=== PATIENT | female | born 1970 | race Caucasian/White ===

== ENCOUNTER 2019-09-26 06:17 | Day surgery (SDC) | payer OTHER ==
[~2019-09-26] VITALS: Ht 167.6 cm; Wt 93.4 kg
[~2019-09-26 06:17] MED LIST: B-121000 MC2 PO; IODINE STRONG100 ML; LORA.5 PO; Methimazole5 MG PO; POTCHL20ER PO; TRIPLE MAGNESI400 MG PO
--- NOTE | 2019-09-26 07:27 | NUR ---
09/26/19 0727 Concha Tanner 1ST ATTEMPT IN RIGHT HAND INFILTRATED RXS SECOND ATTEMPT IN LEFT HAND AGAINST VALVE RXS THIRD ATTEMPT IN RIGHT WRIST INFILTRATED JST FOURTH ATTEMPT IN LEFT HAND SUCCESSFUL JST
[2019-09-26 09:52] LABS: Hematocrit 39.4 % (33.0-51.0); Hemoglobin 13.1 g/dL (11.5-16.0); Mean Corpuscular HGB 31.1 pg (26.0-34.0); Mean Corpuscular HGB Conc 33.2 g/dL (31.5-36.5); Mean Corpuscular Volume 94 fL (80-100); Mean Platelet Volume 9.6 fL (9.1-12.4); Platelet Count 213 K/mm3 (150-400); RDW Coefficient Variation 12.2 % (11.7-14.2); RDW Standard Deviation 42.2 fL (35.1-46.3); Red Blood Cell Count 4.21 M/mm3 (3.80-5.20); White Blood Cell Count 3.68 K/mm3 (4.00-11.30)
--- NOTE | 2019-09-26 09:59 | NUR ---
09/26/19 0959 Arin Carrasquillo PT BLEEDING MORE THAN USUAL. PER ANETHESIOLOGIST, ANGEL CATHETER PLACED, LABS DRAWN: H&H, TYPE AND CROSS, AND TWO UNITS OF BLOOD ORDERED. PHARMACY AND LAB NOTIFIED. PATIENT VSS, WILL CONTINUE TO MONITOR AND AWAIT FURTHER ORDERS.
--- NOTE | 2019-09-26 12:19 | NUR ---
09/26/19 1219 Concha Tanner PT ARRIVES TO SDU C/O 07/07 PAIN IN THROAT. PT MEDICATED WITH IV FENTANYL PER ORDERS. DRESSING CDI. 800ML OF YELLOW CLEAR URINE VISIBLE IN FLOEY CATH. PT DENIES NAUSEA AT THIS TIME. PT CHATTING WITH AT BEDSIDE.
[2019-09-26 12:21] LABS: Hematocrit 38.7 % (33.0-51.0); Hemoglobin 12.9 g/dL (11.5-16.0)
== END 2019-09-26 13:45 | disposition home or self-care (01) ==
LOC: ORSCSDS 06:17
PROVIDERS: Otolaryngology
PROC: 0GTK0ZZ Resection of Thyroid Gland, Open Approach (ICD-10-PCS; principal; 2019-09-26 07:30)
PROC: 0GBJ0ZZ Excision of Thyroid Gland Isthmus, Open Approach (ICD-10-PCS; principal; 2019-09-26 07:30)
DX: E05.20 Thyrotoxicosis with toxic multinodular goiter without thyrotoxic crisis or storm (principal); I10 Essential (primary) hypertension; F17.210 Nicotine dependence, cigarettes, uncomplicated; Z79.899 Other long term (current) drug therapy
CPT/HCPCS: 85014; 85018; 85027; 86850; 86900; 86901; 86923; 88305; 88307; 88311; J0330; J1100; J2250; J2405; J2704; J2765; J3010; J7120